=== PATIENT | male | born 1980 ===

== ENCOUNTER → 2024-07-11 17:58 | Outpatient (REF) | payer OTHER, SELFPAY | LOC: RAD 17:58 | PROVIDERS: ATTENDING PHYSICIAN Radiology Diagnostic Radiology; FAMILY PHYSICIAN Family Medicine | DX: K21.00 Gastro-esophageal reflux disease with esophagitis, without bleeding (principal) | CPT/HCPCS: 70030; 71046 ==

== ENCOUNTER → 2024-07-12 07:31 | Outpatient (REF) | payer OTHER, SELFPAY | LOC: MRI 07:31 | PROVIDERS: ATTENDING PHYSICIAN Internal Medicine; FAMILY PHYSICIAN Family Medicine | DX: Q20.8 Other congenital malformations of cardiac chambers and connections (principal); Q21.0 Ventricular septal defect; I10 Essential (primary) hypertension; I36.1 Nonrheumatic tricuspid (valve) insufficiency; R93.1 Abnormal findings on diagnostic imaging of heart and coronary circulation | CPT/HCPCS: 75561; A9585 ==